=== PATIENT | male | born 1950 | race Caucasian/White ===

== ENCOUNTER → 2020-01-22 14:33 | Outpatient (CLI) | payer MEDICARE, SELFPAY ==
--- NOTE | 2020-01-22 14:34 | CA_ITS ---
APPROVED REPORT EXAM: Comprehensive 2D, Doppler, and color-flow Echocardiogram Bulldozer/Loader/Compactor/Scraper: Aniyah Marie CRT Ht: 5 ft 11 in Wt: 185lbs BSA: 2.04 BP: 162/90 mmHg Indications: Chest Pain, Shortness of Breath, Fatigue, Hyperlipidemia, Hypertension/HDD 2D Dimensions LVOT 1.86 cm (M/F) 1.5-2.5 M-Mode Dimensions RVDd 1.87 cm (0.9-2.6) LVDd 4.78 cm (3.5-5.7) LVDs 3.03 cm (3.5-5.7) IVSd 1.75 cm (0.6-1.1) PWd 0.72 cm (0.6-1.1) EF (Teich) 66.30% FS 36.60% EDV (Teich) 106.50 mL ESV (Teich) 35.90 mL LV Diastology E/A Ratio 0.57 Mitral Valve MV A Velocity 72.00 (40-130 cm/s) Left Ventricle Left atrium is mildly enlarged, left ventricle is normal size, mild concentric left ventricular hypertrophy, visually estimated ejection fraction 55% with no regional wall motion abnormality. Grade 1 diastolic dysfunction seen without tissue Doppler evidence of raise left atrial pressure. Right Ventricle Right atrium and right ventricle are normal size and contractility. Aortic Valve Aortic valve is minimally thickened and fibrosed, there is no aortic stenosis, there is mild aortic insufficiency. Mitral Valve Mitral valve is grossly normal, there is mild mitral regurgitation. Tricuspid Valve Tricuspid valve is grossly normal, there is mild tricuspid regurgitation. Tricuspid regurgitation jet velocity is inadequate for calculation of the right ventricular systolic pressure. Pulmonic Valve Pulmonic valve is poorly visualized. Great Vessels Aortic root is normal size. Pericardium No significant pericardial effusion noted. Conclusion 1. Mildly enlarged left atrium, normal left ventricular size, mild concentric left ventricular hypertrophy, visually estimated ejection fraction 55% with no regional wall motion abnormality, grade 1 diastolic dysfunction seen without tissue Doppler evidence of raise left atrial pressure. 2. Mild aortic, mild mitral and tricuspid regurgitation. 3. No significant pericardial effusion noted. Electronically signed by : Dhaval Owens, 01/23/2020 14:30:01
== END ==
PROVIDERS: PCP Nurse Practitioner Family; Visit Provider Nurse Practitioner Family
DX: I20.0 Unstable angina (principal); R06.00 Dyspnea, unspecified
CPT/HCPCS: 93306

== ENCOUNTER → 2020-05-13 10:06 | Outpatient (CLI) | payer MEDICARE, SELFPAY ==
[2020-05-13 10:44] LABS: Basophils # 0.1 K/mm3 (0-0.2); Basophils % 1.5 % (0.1-2.0); Eosinophils # 0.5 K/mm3 (0.0-0.4); Eosinophils % 6.3 % (0.1-12.0); Hematocrit 47.9 % (42.0-52.0); Hemoglobin 16.8 g/dL (14.1-18.0); Lymphocytes # 2.9 K/mm3 (0.7-4.5); Lymphocytes % 37.6 % (10-50); Mean Corpuscular Hemoglobin 31.7 pg (27.0-31.2); Mean Corpuscular Volume 90.7 fl (80-94); Mean Platelet Volume 7.4 fl (7.4-10.4); Monocytes # 0.5 K/mm3 (0.1-1.0); Monocytes % 6.8 % (1.7-9.3); Neutrophils # 3.7 K/mm3 (1.8-7.8); Neutrophils % 47.9 % (37.0-80.0); Platelet Count 300 K/mm3 (142-424); Red Blood Count 5.28 M/mm3 (4.60-6.20); Red Cell Distribution Width 13.1 % (11.5-17.5); White Blood Count 7.7 K/mm3 (4.8-10.8)
[2020-05-13 12:01] LABS: Alanine Aminotransferase 24 U/L (12-78); Albumin Level 4.5 g/dl (3.5-5.0); Alkaline Phosphatase 70 U/L (38-126); Anion Gap 13.3 mEq/L (5-15); Aspartate Amino Transferase 37 U/L (17-59); Bilirubin,Indirect 0.5 mg/dL (0.0-0.9); Bilirubin,Total 0.5 mg/dl (0.2-1.3); Bilirubin,Unconjugated 0.5 mg/dL (0.0-1.1); Blood Urea Nitrogen 17 mg/dl (9-20); Calcium 9.9 mg/dl (8.4-10.2); Carbon Dioxide 29 mmol/L (22.0-30.0); Chloride 102 mmol/L (98-107); Chol/HDL Ratio 3.7 (1-3.5); Cholesterol 191 mg/dl (140-200); Estimated Glomerular Filt Rate 74 ml/min (>60); GFR (African American) 89 ML/MIN (>60); Glucose 107 mg/dl (74-100); HDL Cholesterol 51 mg/dl (40-60); Potassium 5.3 mmoL/L (3.5-5.1); Sodium 139 mmol/L (136-145); Total Protein,Serum 7.9 g/dl (6.3-8.2); Triglycerides 175 mg/dl (30-150); VLDL Cholesterol 35 mg/dL (0-40)
[2020-05-13 12:12] LABS: Direct LDL Cholesterol 108.94 mg/dL (100-129)
[2020-05-13 12:18] LABS: Free T4 (Free Thyroxine) 1.29 ng/dl (0.78-2.19)
[2020-05-13 12:32] LABS: Thyroid Stimulating Hormone 3.73 uIU/mL (0.465-4.68)
== END ==
PROVIDERS: Visit Provider Nurse Practitioner Family
DX: R06.02 Shortness of breath; I25.10 Atherosclerotic heart disease of native coronary artery without angina pectoris; E78.2 Mixed hyperlipidemia; R94.31 Abnormal electrocardiogram [ECG] [EKG]; Z95.5 Presence of coronary angioplasty implant and graft; I11.9 Hypertensive heart disease without heart failure
CPT/HCPCS: 36415; 80048; 80061; 80076; 84439; 84443; 85025

== ENCOUNTER → 2020-05-17 13:04 | Outpatient (CLI) | payer MEDICARE, SELFPAY | PROVIDERS: PCP Nurse Practitioner Family; Visit Provider Nurse Practitioner Family | DX: G47.33 Obstructive sleep apnea (adult) (pediatric) (principal); R40.0 Somnolence | CPT/HCPCS: G0399 ==

== ENCOUNTER → 2020-06-02 08:33 | Outpatient (CLI) | payer MEDICARE, SELFPAY ==
[2020-06-02 09:45] LABS: Anion Gap 13.3 mEq/L (5-15); Blood Urea Nitrogen 17 mg/dl (9-20); Calcium 9.3 mg/dl (8.4-10.2); Carbon Dioxide 24 mmol/L (22.0-30.0); Chloride 103 mmol/L (98-107); Estimated Glomerular Filt Rate 96 ml/min (>60); GFR (African American) 116 ML/MIN (>60); Glucose 101 mg/dl (74-100); Potassium 4.3 mmoL/L (3.5-5.1); Sodium 136 mmol/L (136-145)
== END ==
PROVIDERS: Visit Provider Urology
DX: E87.5 Hyperkalemia (principal)
CPT/HCPCS: 36415; 80048

== ENCOUNTER → 2021-03-09 11:55 | Outpatient (CLI) | payer MEDICARE, SELFPAY ==
[2021-03-09 12:23] LABS: Basophils # 0.1 K/mm3 (0-0.2); Basophils % 1.5 % (0.1-2.0); Eosinophils # 0.3 K/mm3 (0.0-0.4); Eosinophils % 3.3 % (0.1-12.0); Hemoglobin 17.7 g/dL (14.1-18.0); Lymphocytes # 2.9 K/mm3 (0.7-4.5); Lymphocytes % 36.8 % (10-50); Mean Corpuscular HGB Conc 33.3 g/dL (31.8-35.4); Mean Corpuscular Hemoglobin 30.8 pg (27.0-31.2); Mean Corpuscular Volume 92.5 fl (80-94); Mean Platelet Volume 7.4 fl (7.4-10.4); Monocytes # 0.6 K/mm3 (0.1-1.0); Monocytes % 7.7 % (1.7-9.3); Neutrophils % 50.6 % (37.0-80.0); Platelet Count 310 K/mm3 (142-424); Red Blood Count 5.73 M/mm3 (4.60-6.20); Red Cell Distribution Width 13.2 % (11.5-17.5)
[2021-03-09 12:58] LABS: Chloride 102 mmol/L (98-107)
[2021-03-09 12:59] LABS: Potassium 4.9 mmoL/L (3.5-5.1); Sodium 138 mmol/L (136-145)
[2021-03-09 13:01] LABS: Alanine Aminotransferase 38 U/L (12-78); Alkaline Phosphatase 94 U/L (38-126); Anion Gap 14.9 mEq/L (5-15); Aspartate Amino Transferase 39 U/L (17-59); Bilirubin,Indirect 1.1 mg/dL (0.0-0.9); Bilirubin,Total 1.1 mg/dl (0.2-1.3); Bilirubin,Unconjugated 1.1 mg/dL (0.0-1.1); Blood Urea Nitrogen 17 mg/dl (9-20); Carbon Dioxide 26 mmol/L (22.0-30.0); Cholesterol 219 mg/dl (140-200); Estimated Glomerular Filt Rate 66 ml/min (>60); GFR (African American) 80 ML/MIN (>60); Triglycerides 154 mg/dl (30-150); VLDL Cholesterol 31 mg/dL (0-40)
[2021-03-09 13:02] LABS: Calcium 10.3 mg/dl (8.4-10.2); Chol/HDL Ratio 4.2 (1-3.5); Glucose 94 mg/dl (74-100); HDL Cholesterol 52 mg/dl (40-60)
[2021-03-09 13:55] LABS: Direct LDL Cholesterol 124.71 mg/dL (100-129)
== END ==
PROVIDERS: Visit Provider Internal Medicine Cardiovascular Disease
DX: I10 Essential (primary) hypertension; I25.10 Atherosclerotic heart disease of native coronary artery without angina pectoris; R00.1 Bradycardia, unspecified; R06.00 Dyspnea, unspecified; R40.0 Somnolence; R53.83 Other fatigue; R94.31 Abnormal electrocardiogram [ECG] [EKG]; Z95.5 Presence of coronary angioplasty implant and graft; E78.2 Mixed hyperlipidemia; R06.02 Shortness of breath
CPT/HCPCS: 36415; 80048; 80061; 80076; 85025

== ENCOUNTER → 2021-04-12 10:00 | Outpatient (CLI) | payer MEDICARE, SELFPAY ==
[2021-04-12 10:39] LABS: Basophils # 0.1 K/mm3 (0-0.2); Basophils % 1.7 % (0.1-2.0); Eosinophils # 0.5 K/mm3 (0.0-0.4); Eosinophils % 5.9 % (0.1-12.0); Hematocrit 49.9 % (42.0-52.0); Lymphocytes # 2.7 K/mm3 (0.7-4.5); Lymphocytes % 34.4 % (10-50); Mean Corpuscular HGB Conc 34.1 g/dL (31.8-35.4); Mean Corpuscular Hemoglobin 31.1 pg (27.0-31.2); Mean Corpuscular Volume 91.2 fl (80-94); Mean Platelet Volume 7.7 fl (7.4-10.4); Monocytes # 0.6 K/mm3 (0.1-1.0); Monocytes % 7.4 % (1.7-9.3); Neutrophils # 3.9 K/mm3 (1.8-7.8); Neutrophils % 50.7 % (37.0-80.0); Platelet Count 267 K/mm3 (142-424); Red Blood Count 5.47 M/mm3 (4.60-6.20); Red Cell Distribution Width 12.9 % (11.5-17.5); White Blood Count 7.7 K/mm3 (4.8-10.8)
[2021-04-12 10:48] LABS: Blood Urea Nitrogen 14 mg/dl (9-20); Carbon Dioxide 27 mmol/L (22.0-30.0); Chloride 106 mmol/L (98-107); Estimated Glomerular Filt Rate 74 ml/min (>60); GFR (African American) 89 ML/MIN (>60); Glucose 106 mg/dl (74-100); Sodium 140 mmol/L (136-145)
== END ==
PROVIDERS: Visit Provider Internal Medicine Cardiovascular Disease
DX: I10 Essential (primary) hypertension (principal); I20.0 Unstable angina; Z95.5 Presence of coronary angioplasty implant and graft; Z01.818 Encounter for other preprocedural examination; Z20.822 Contact with and (suspected) exposure to COVID-19
CPT/HCPCS: 36415; 80048; 85025; U0003

== ENCOUNTER 2021-04-14 08:39 | Day surgery (SDC) | payer MEDICARE, SELFPAY ==
[2021-04-14] VITALS (11 sets, daily range): BP systolic 110–145; BP diastolic 68–85; PULSE 62–76; RESP 16–20; TEMP 36.6–36.9; O2SAT 92–98; BMI 25.5
--- NOTE | 2021-04-14 07:20 | IR_ITS ---
APPROVED REPORT Patient Location: Outpatient Handle Machine Operator: AUSTIN Montgomery RT (R) PROCEDURES Left heart catheterization Left ventriculogram Selective coronary angiogram Drug-eluting stent deployment to the ostial proximal circumflex artery Angioplasty to the ostial proximal LAD Drug-eluting stent deployment to the distal right coronary artery extending into the posterior descending artery INDICATION Class III-IV angina pectoris, Coronary artery disease Informed consent was obtained prior to the procedure. COMPLICATIONS None Estimated Blood Loss: Less than 10 mls TECHNIQUE One percent lidocaine used to anesthetize the right anterior aspect of the wrist. The right radial artery was accessed via the Seldinger technique. A 6 Turkish sheath was placed in the right radial artery. 2.5 mg of verapamil, 800 mcg of nitroglycerin, 1mg Lidocaine and 5000 U Heparin were given through the arterial sheath. The trap catheter was also used to perform left heart catheterization, left ventriculogram and selective coronary angiogram. At the end of the diagnostic angiogram therapeutic heparin was administered and a JL 3 guide catheter was placed in the left main artery. Choice PT extra-support wire was placed distally in the circumflex artery and a 3 mm balloon was used to predilate the stenosis. Following this a 3.5 x 12 mm resolute [place] stent was deployed at 20 stuart in the ostial segment of the circumflex artery reducing the critical stenosis to 0%. ONI-3 flow was present before and after the procedure. The wire was pulled back and placed into the LAD where the same balloon was advanced and inflated at 20 stuart to open any struts intruding upon the LAD. ONI-3 flow was present before and after the procedure. After achieving excellent angiographic results the apparatus was removed and a wire was used to exchange for a JR4 guide catheter which was placed in the right coronary. The same Choice PT wire was placed distally in the posterior descending artery and a 2.5 x 12 mm resolute [place] stent was deployed in the distal right coronary extending to the posterior descending artery at 20 stuart reducing the 90% stenosis to 0%. ONI-3 flow was present before and after the procedure. After the end of the procedure the apparatus was removed the sheath was removed good hemostasis was achieved using TR banding patient was transferred to the postop putting in stable condition ANGIOGRAPHIC RESULTS The left main artery Normal The left anterior descending artery Has a stent in the ostial proximal segment is widely patent. The stent extends to the mid segment which has a 20 to 30% concentric in-stent restenotic area with in the mid segment. The remaining LAD has 20 and 30% distal stenoses. The circumflex artery Is a large-caliber codominant vessel with an ostial 90% eccentric stenosis. The first obtuse marginal artery has 30 and 20% proximal mid vessel stenoses while the second obtuse marginal artery has a 30 to 40% mid vessel stenosis. The right coronary artery Is a codominant vessel and has proximal mid vessel diffuse 30 to 40% stenoses. The posterior descending artery is a large branch and has an ostial proximal 90% stenosis. The posterior lateral branch is small to medium in size The WILSON ventriculogram reveals Normal 65% The left ventricular end-diastolic pressure 10 mmHg IMPRESSION Critical disease in the ostial codominant circumflex artery Successful stent to the ostial circumflex artery critical disease reduced to 0% with 1 drug-eluting stent Successful angioplasty of the ostial proximal LAD Severe disease of the posterior descending artery Successful stent to the posterior descending artery severe disease redu
[2021-04-14 11:54] LABS: CATHL Activated Clotting Time > 400 SEC (74-125)
--- NOTE | 2021-04-14 13:52 | HMH.PHACLD ---
Nando Agudelo has received discharge medication counseling on the following medications: PATIENT IS CURRENTLY TAKING ATORVASTATIN 40 MG HS, ASPIRIN 81 MG DAILY, CLOPIDOGREL 75 MG DAILY, AND RAMIPRIL 2.5 MG DAILY. MD NOT STARTING BETA KAYLA AT THIS TIME DUE TO LOW HEART RATE.
--- NOTE | 2021-04-14 14:16 | ECG_ITS ---
APPROVED REPORT Exam: Resting ECG HR:49 bpm ECG Measurements Heart Rate 49 AXES AZ 214 P 31 QRSd 72 QRS -36 QT 436 T 51 QTc 393 Conclusion Marked sinus bradycardia with 1st degree AV block Left axis deviation Abnormal ECG Electronically signed by : Meliton Nunez, 04/15/2021 09:07:00
--- NOTE | 2021-04-14 14:17 | SUR.PHASEII ---
Once getting dressed pt experienced nausea, lightheadedness, diaphoresis. pt reconnected to heart monitor and blood pressure cuff. vs noted BP = 83/57, HR = 50, RR = 24, O2 = 96%. IVF bolus initiated. Pt resting in bed at this time.
--- NOTE | 2021-04-14 14:27 | SUR.PHASEII ---
PT STABLIZED W/ BP = 111/69, HR = 58. PT STATES HE FEELS MUCH BETTER . DIAPHORESIS RESOLVED. NAUSEA RESOLVED. PT TO CONTINUE W/ DISCHARGE.
== END 2021-04-14 14:38 | disposition home or self-care (01) ==
LOC: CATHLAB 08:41
PROVIDERS: PCP Nurse Practitioner Family; Visit Provider Internal Medicine
DX: I25.118 Atherosclerotic heart disease of native coronary artery with other forms of angina pectoris (principal); I10 Essential (primary) hypertension; Z95.5 Presence of coronary angioplasty implant and graft; E78.5 Hyperlipidemia, unspecified; K21.9 Gastro-esophageal reflux disease without esophagitis; Z79.82 Long term (current) use of aspirin; Z79.899 Other long term (current) drug therapy
CPT/HCPCS: 85347; 92928; 92929; 93005; 93458; 99152; 99153; C1725; C1769; C1876; C9600; C9601; J1644; J2405; Q9967

== ENCOUNTER 2021-05-03 13:35 | Outpatient (RCR) | payer MEDICARE, SELFPAY | END 2021-07-11 10:44 | disposition home or self-care (01) | LOC: PT 13:35 | PROVIDERS: Visit Provider Internal Medicine | DX: Z95.5 Presence of coronary angioplasty implant and graft (principal) | CPT/HCPCS: 93798 ==

== ENCOUNTER → 2021-07-28 09:42 | Outpatient (CLI) | payer MEDICARE, SELFPAY ==
[2021-07-28 11:08] LABS: Bilirubin,Unconjugated 0.7 mg/dL (0.0-1.1)
[2021-07-28 11:09] LABS: Alanine Aminotransferase 36 U/L (12-78); Albumin Level 4.2 g/dl (3.5-5.0); Alkaline Phosphatase 89 U/L (38-126); Aspartate Amino Transferase 38 U/L (17-59); Bilirubin,Indirect 0.7 mg/dL (0.0-0.9); Bilirubin,Total 0.7 mg/dl (0.2-1.3); Cholesterol 194 mg/dl (140-200); HDL Cholesterol 49 mg/dl (40-60); Total Protein,Serum 7.3 g/dl (6.3-8.2); Triglycerides 224 mg/dl (30-150); VLDL Cholesterol 45 mg/dL (0-40)
[2021-07-28 11:20] LABS: Direct LDL Cholesterol 84.12 mg/dL (100-129)
== END ==
PROVIDERS: Visit Provider Internal Medicine Cardiovascular Disease
DX: E78.5 Hyperlipidemia, unspecified (principal); I10 Essential (primary) hypertension; I25.10 Atherosclerotic heart disease of native coronary artery without angina pectoris; R00.1 Bradycardia, unspecified; R06.00 Dyspnea, unspecified; R40.0 Somnolence; R53.83 Other fatigue; R94.31 Abnormal electrocardiogram [ECG] [EKG]; Z95.5 Presence of coronary angioplasty implant and graft
CPT/HCPCS: 36415; 80061; 80076

== ENCOUNTER → 2022-02-28 10:22 | Outpatient (CLI) | payer MEDICARE, SELFPAY ==
[2022-02-28 11:16] LABS: Basophils # 0.1 K/mm3 (0-0.2); Basophils % 1.7 % (0.1-2.0); Eosinophils # 0.3 K/mm3 (0.0-0.4); Eosinophils % 3.1 % (0.1-12.0); Hematocrit 50.1 % (42.0-52.0); Hemoglobin 16.5 g/dL (14.1-18.0); Lymphocytes % 38.2 % (10-50); Mean Corpuscular HGB Conc 32.9 g/dL (31.8-35.4); Mean Corpuscular Hemoglobin 31.4 pg (27.0-31.2); Mean Corpuscular Volume 95.3 fl (80-94); Mean Platelet Volume 7.9 fl (7.4-10.4); Monocytes # 0.7 K/mm3 (0.1-1.0); Monocytes % 8.2 % (1.7-9.3); Neutrophils # 3.8 K/mm3 (1.8-7.8); Neutrophils % 48.8 % (37.0-80.0); Platelet Count 280 K/mm3 (142-424); Red Blood Count 5.25 M/mm3 (4.60-6.20); Red Cell Distribution Width 12.9 % (11.5-17.5); White Blood Count 7.9 K/mm3 (4.8-10.8)
[2022-02-28 11:47] LABS: Anion Gap 10.2 mEq/L (5-15); Blood Urea Nitrogen 12 mg/dl (9-20); Calcium 9.1 mg/dl (8.4-10.2); Carbon Dioxide 28 mmol/L (22.0-30.0); Chloride 104 mmol/L (98-107); Estimated Glomerular Filt Rate 83 ml/min (>60); GFR (African American) 100 ML/MIN (>60); Glucose 97 mg/dl (74-100); Potassium 4.2 mmoL/L (3.5-5.1); Sodium 138 mmol/L (136-145)
== END ==
PROVIDERS: PCP Nurse Practitioner Family; Visit Provider Physician Assistant
DX: I10 Essential (primary) hypertension (principal); I25.118 Atherosclerotic heart disease of native coronary artery with other forms of angina pectoris; Z95.5 Presence of coronary angioplasty implant and graft; Z01.812 Encounter for preprocedural laboratory examination; Z11.52 Encounter for screening for COVID-19
CPT/HCPCS: 36415; 80048; 85025; C9803; U0003; U0005

== ENCOUNTER 2022-03-02 08:24 | Day surgery (SDC) | payer MEDICARE, SELFPAY ==
[2022-03-02] VITALS (17 sets, daily range): BP systolic 78–158; BP diastolic 32–93; PULSE 50–71; RESP 18–20; TEMP 36.4; O2SAT 94–100; BMI 25.7
--- NOTE | 2022-03-02 | IR_ITS ---
APPROVED REPORT Patient Location: Outpatient Wheel Grinder: AUSTIN Leslie RT (R) PROCEDURES Left heart catheterization Left ventriculogram Selective coronary angiogram Drug-eluting stent to deployment to the ostial circumflex artery Drug-eluting stent deployment to the left main artery extending into the left anterior descending artery INDICATION Coronary artery disease, Class III-IV angina pectoris, Recurrent in-stent restenosis, Informed consent was obtained prior to the procedure. COMPLICATIONS None Estimated Blood Loss: Less than 10 mls TECHNIQUE One percent lidocaine used to anesthetize the right anterior aspect of the wrist. The right radial artery was accessed via the Seldinger technique. A 6 Italian sheath was placed in the right radial artery. 2.5 mg of verapamil, 800 mcg of nitroglycerin, 1mg Lidocaine and 5000 U Heparin were given through the arterial sheath. The papa catheter was also used to perform left heart catheterization, left ventriculogram and selective coronary angiogram. At the end the diagnostic angiogram the guide catheter was placed in the left main artery preceded by therapeutic heparin giving a therapeutic ACT. Choice PT extra-support wire was placed down the circumflex artery where a 3 mm balloon was used to predilate the stenosis. Following this a 3.5 x 12 mm [place] drug-eluting stent was deployed at 20 stuart reducing the critical stenosis to 0%. An additional wire was placed into the LAD where a 3 mm balloon was used to predilate the LAD. A 4 mm x 18 mm [place] drug-eluting stent was then placed in the left main artery extending into the proximal LAD and deployed at 20 stuart reducing the stenosis to 0%. ONI-3 flow was present down the circumflex artery as well as the LAD. After achieving excellent angiographic results with wide patency it was decided to abandon the procedure at this point therefore the apparatus was removed the sheath was removed and hemostasis was achieved using TR banding patient was transferred to the postop already in stable condition ANGIOGRAPHIC RESULTS The left main artery Has an ostial smooth 10 to 20% stenosis with what appears to be a stent in the distal aspects which extends into the LAD. The distal portion of the stent is widely patent The left anterior descending artery Has a stent originating off the distal left main artery extending into the ostial proximal segment. The LAD the stent is widely patent. The remaining LAD has mild 10 to 20% atheromatous plaque The circumflex artery There is a large codominant vessel with a stent in the ostial segment which has concentric 90% in-stent restenosis The right coronary artery Is a dominant vessel and has an ostial 50% stenosis with proximal 30% stenoses with an additional 30 to 40% mid vessel stenosis and distal 30% stenoses The WILSON ventriculogram reveals Normal 60% The left ventricular end-diastolic pressure 20 mmHg IMPRESSION Severe in-stent restenosis within the ostial circumflex artery Plaque shifting when stent in the ostial circumflex artery which encroached upon the LAD which required stenting from the left main artery extending into the LAD which produced wide-open patent left main LAD and circumflex artery Moderate to severe disease in the right coronary as described above Normal ejection fraction Mildly elevated LVEDP PLAN 1. Continue with medical management which includes dual antiplatelet therapy 2. LDL less than 55 to be achieved with high intensity statin 3. Cardiac rehabilitation 4. Despite this being recurrent revascularization in this vessel patient does not meet criteria for surgical revascularization at this point. Perhaps in the future if the LAD or lef
--- NOTE | 2022-03-02 13:25 | HMH.PHACLD ---
Nando Agudelo has received discharge medication counseling on the following medications: ASPIRIN PLAVIX ATORVASTATIN LISINOPRIL CANNOT TAKE A BETA KAYLA AT THIS TIME DUE TO BRADYCARDIA. PATIENT VERBALIZED UNDERSTANDING AND HAD NO QUESTIONS AT THIS TIME. -BASIA KELLEY, LUZMARIAD
[2022-03-02 13:49] LABS: CATHL Activated Clotting Time 314 SEC (74-125)
--- NOTE | 2022-03-02 15:28 | SUR.PHASEII ---
while d/c patient, patient stated he wasnt feeling well and became diaphoretic, v/s taken, noted to have b/p 78/32, HR of 50, pt layed down, new IV obtained, fluids administered, oxygen applied and patient on monitor. VSS stable at this time.
== END 2022-03-02 16:04 | disposition home or self-care (01) ==
LOC: CATHLAB 08:25
PROVIDERS: PCP Nurse Practitioner Family; Visit Provider Internal Medicine
DX: I25.119 Atherosclerotic heart disease of native coronary artery with unspecified angina pectoris (principal); Z95.5 Presence of coronary angioplasty implant and graft; T82.855A Stenosis of coronary artery stent, initial encounter; Y83.1 Surgical operation with implant of artificial internal device as the cause of abnormal reaction of the patient, or of later complication, without mention of misadventure at the time of the procedure
CPT/HCPCS: 85347; 92928; 93458; 99152; 99153; C1725; C1769; C1875; C1876; C9600; J1644; Q9967

== ENCOUNTER 2022-03-21 13:55 | Outpatient (RCR) | payer MEDICARE, SELFPAY | END 2022-05-17 15:00 | disposition home or self-care (01) | LOC: PT 13:55 | PROVIDERS: Visit Provider Internal Medicine | DX: I25.10 Atherosclerotic heart disease of native coronary artery without angina pectoris (principal); Z95.5 Presence of coronary angioplasty implant and graft | CPT/HCPCS: 93798 ==